=== PATIENT | male | born 1965 | race Two or more races ===

== ENCOUNTER 2016-10-01 17:44 | Emergency (ER) | payer OTHER ==
[2016-10-01 18:00] VITALS: BP 157/97; PULSE 96; RESP 18; TEMP 97.7; O2SAT 95
--- NOTE | 2016-10-01 19:34 | UCPHY ---
H & P Time Seen by Provider: 10/01/16 19:21 Patient Type: Established HPI/ROS: This patient presents with a chief complaint of nasal congestion such that it is hard for him to breathe through his nose. He has mild a cough and headache but denies sore throat. He does admit to left ear ache. He denies fever or chest pain. REVIEW OF SYSTEMS: Constitutional: No fever, no chills. Eyes: No complaints ENT: No sore throat, left earache. Respiratory: Mild cough, no shortness of breath. Cardiac: No chest pain, no palpitations. Musculoskeletal: No back pain. Skin: No rashes. Neurological: headache. Smoking Status: Never smoked Physical Exam: GENERAL: Well-appearing, well-nourished and in no acute distress. HEAD: Atraumatic, normocephalic. EYES: Pupils equal round and reactive to light, extraocular movements intact, sclera anicteric, conjunctiva are normal. ENT: TMs normal, nares patent, oropharynx clear without exudates. Moist mucous membranes. There is mild tenderness to percussion over both maxillary sinuses NECK: Normal range of motion, supple without lymphadenopathy or JVD. LUNGS: Breath sounds clear to auscultation bilaterally and equal. No wheezes rales or rhonchi. HEART: Regular rate and rhythm without murmurs, rubs or gallops. EXTREMITIES: Normal range of motion, no pitting or edema. No clubbing or cyanosis. NEUROLOGICAL: Cranial nerves II through XII grossly intact. Normal speech, normal gait. PSYCH: Normal mood, normal affect. SKIN: Warm, dry, normal turgor, no visible rashes or lesions. Constitutional: Initial Vital Signs Temperature (C) 36.5 C 10/01/16 17:57 Heart Rate 96 10/01/16 17:57 Respiratory Rate 18 10/01/16 17:57 Blood Pressure 157/97 H 10/01/16 17:57 O2 Sat (%) 95 10/01/16 17:57 O2 Delivery Mode Room Air Allergies/Adverse Reactions: No Known Allergies Allergy (Verified 10/01/16 17:57) Home Medications: Medication Instructions Recorded Miscellaneous Medical Supply [NO 1 ea MIS AD 07/16/12 HOME MEDS] Medical Decision Making Differential Diagnosis: I believe that this patient has a viral syndrome and that antibiotics are not indicated at this time. Departure - Departure Disposition: Home, Routine, Self-Care Clinical Impression: Upper respiratory infection Qualifiers: URI type: unspecified URI Qualified Code(s): J06.9 - Acute upper respiratory infection, unspecified Condition: Good Instructions: Upper Respiratory Infection (ED) Additional Instructions: If your symptoms have not resolved in 5-7 days you should be re-evaluated. Use a nasal decongestant spray such as Afrin to relieve your nasal congestion. Adult Pain & Fever Control: We recommend Acetaminophen (Tylenol) and Ibuprofen (Motrin, Advil) for pain and fever control. When fever is high or pain severe, both drugs can be used at the same time, but at different intervals. Please note the time differences. Your dose is: Acetaminophen [650]mg every 4 to 6 hours ibuprofen [600]mg every [6] hours with food OR naproxen Sodium (Aleve) [440]mg every 12 hours. Note: do not take Acetaminophen with Hydrocodone (Vicodin, Lortab) or Oxycodone (Percocet). These medications also contain Acetaminophen. No more than 3000 mg of Acetaminophen should be taken in 24 hours (for an adult) . The maximal dose of ibuprofen that it is safe in a 24-hour period is 2400 mg. You may take 400 mg every 4 hours, 600 mg every 6 hours or 800 mg every 8 hours safely. Referrals: Wm Rascon DO [Primary Care Provider] - As per Instructions - PQRS PQRS Measurement: Not applicable
== END 2016-10-01 19:40 | disposition home or self-care (01) ==
LOC: CED 17:44
DX: J06.9 Acute upper respiratory infection, unspecified (principal)
CPT/HCPCS: 99213-PO; G0463-PO